=== PATIENT | male | born 1955 | race Caucasian/White ===

== ENCOUNTER → 2017-02-09 | Outpatient (CLI) | payer OTHER | END | disposition home or self-care (01) | LOC: CFH 07:28 | PROVIDERS: ATTEND Internal Medicine Cardiovascular Disease | DX: I77.819 Aortic ectasia, unspecified site (principal); I11.9 Hypertensive heart disease without heart failure; I25.10 Atherosclerotic heart disease of native coronary artery without angina pectoris; Z95.5 Presence of coronary angioplasty implant and graft | CPT/HCPCS: 78452; 93017; 93306; A9502 ==

== ENCOUNTER → 2018-05-31 | Outpatient (CLI) | payer OTHER | END | disposition home or self-care (01) | LOC: CFH 06:44 | PROVIDERS: ATTEND Internal Medicine Cardiovascular Disease | DX: I35.8 Other nonrheumatic aortic valve disorders (principal); I10 Essential (primary) hypertension; E78.5 Hyperlipidemia, unspecified | CPT/HCPCS: 93306 ==

== ENCOUNTER 2019-01-01 15:47 | Outpatient (CLI) | payer OTHER | END 2019-01-01 23:59 | disposition home or self-care (01) | LOC: CVU 15:47 | PROVIDERS: ATTEND Internal Medicine Cardiovascular Disease | DX: I08.0 Rheumatic disorders of both mitral and aortic valves (principal); I10 Essential (primary) hypertension; E78.5 Hyperlipidemia, unspecified; I25.2 Old myocardial infarction | CPT/HCPCS: 93306 ==

== ENCOUNTER → 2019-12-17 | Outpatient (CLI) | payer OTHER ==
[~2019-12-17] MED LIST: REGADENOSON 0.4 MG/5 ML SYRINGE ONE
== END | disposition home or self-care (01) ==
LOC: CFH 08:14
PROVIDERS: ATTEND Internal Medicine Cardiovascular Disease
DX: I21.29 ST elevation (STEMI) myocardial infarction involving other sites (principal); I21.19 ST elevation (STEMI) myocardial infarction involving other coronary artery of inferior wall; I25.10 Atherosclerotic heart disease of native coronary artery without angina pectoris
CPT/HCPCS: 78452; 93017; A9502; J2785